=== PATIENT | female | born 1980 | race American Indian/Alaskan Native ===

== ENCOUNTER 2017-09-22 16:48 | Emergency (ER) | payer MEDICAID ==
[2017-09-22 17:52] LABS: Basophils # (Auto) 0.1 K/mm3 (0.0-0.1); Basophils % (Auto) 0.9 % (0.0-1.8); Eosinophils # (Auto) 0.2 K/mm3 (0.0-0.4); Eosinophils % (Auto) 2.3 % (0.0-4.3); Hematocrit 38.9 % (30.3-42.9); Hemoglobin 12.9 gm/dl (10.1-14.3); Lymphocytes % (Auto) 30.6 % (13.4-35.0); Mean Corpuscular HGB Conc 33 % (30-34); Mean Corpuscular Hemoglobin 27 pg (28-32); Mean Corpuscular Volume 81 fl (79-97); Monocytes # (Auto) 0.5 K/mm3 (0.0-0.8); Monocytes % (Auto) 7.5 % (0.0-7.3); Platelet Count 382 K/mm3 (140-440); Red Blood Count 4.78 M/mm3 (3.65-5.03); Red Cell Distribution Width 16.7 % (13.2-15.2)
[2017-09-22 17:58] LABS: Bilirubin,Urine NEG (Negative); Blood,Urine NEG (Negative); Color,Urine Yellow (Yellow); Protein,Urine <15 mg/dL mg/dL (Negative)
[2017-09-22 18:00] LABS: HCG Qualitative,Urine Negative (Negative)
[2017-09-22 18:11] LABS: Alanine Aminotransferase 22 units/L (7-56); Albumin 4.3 g/dL (3.9-5); BUN/Creatinine Ratio 8; Blood Urea Nitrogen 6 mg/dL (7-17); Calcium 9.3 mg/dL (8.4-10.2); Hemolysis Index 0
[2017-09-22] MEDS ORDERED: ZOFRAN IV ONE (23:12)
[2017-09-22] MEDS ORDERED: STADOL IV ONE (23:12)
[2017-09-22] MEDS ORDERED: NACL ONE (23:43)
--- NOTE | 2017-09-23 01:32 | Cat Scan Report ---
FINAL REPORT PROCEDURE: CT ABDOMEN PELVIS W CON TECHNIQUE: Computerized axial tomography of the abdomen and pelvis was performed after the IV injection of iodinated nonionic contrast. HISTORY: PAIN COMPARISON: No prior studies are available for comparison. FINDINGS: Visualized lower thorax: No significant abnormality. Liver: Normal size and attenuation. Spleen: Normal size and attenuation. Gallbladder and biliary system: Normal. Pancreas: Normal. Adrenals: Normal. Kidneys: Normal. GI tract: There is focal acute diverticulitis of the sigmoid colon. There is no perforation, obstruction or abscess. There has been gastric surgery. The small bowel and appendix are unremarkable per. Lymph nodes and mesentery: Normal. Vasculature: Normal. Bladder: Normal. Reproductive organs: Uterus and ovaries are intact. There is a small amount of free pelvic fluid.. Peritoneum: There is no free air, abscess or adenopathy.. Musculoskeletal structures: No significant abnormality. Other: None. IMPRESSION: Focal acute diverticulitis of the sigmoid colon. There is no obstruction, perforation or abscess.
[2017-09-23] MEDS ORDERED: STADOL IV ONE (01:40)
--- NOTE | 2017-09-23 02:09 | Emergency Department Report ---
ED Abdominal Pain HPI - General Chief Complaint: Abdominal Pain Stated Complaint: LOWER ABD PAIN Time Seen by Provider: 09/22/17 22:51 Source: patient Mode of arrival: Ambulatory Limitations: No Limitations - History of Present Illness Initial Comments: Patient complains of abdominal pain for the last 3 days. Patient is status post gastric sleeve, which was done in July Complaint: abdominal pain -: Gradual Location: LLQ Radiation: other (none) Migration to: other (none) Severity: moderate Severity scale (0 -10): 6 Quality: sharp Consistency: constant Improves With: nothing Worsens With: nothing Associated Symptoms: nausea - Related Data Previous Rx's Medication Instructions Recorded Last Taken Type Ciprofloxacin HCl [Cipro] 500 mg PO BID #20 tablet 09/23/17 Unknown Rx HYDROcodone/ACETAMINOPHEN [[place] 1 each PO Q6HR PRN #20 tablet 09/23/17 Unknown Rx 7.5-325 Tablet] Ondansetron [Zofran Odt] 4 mg PO Q6HR PRN #20 tab.rapdis 09/23/17 Unknown Rx metroNIDAZOLE [Flagyl CAP] 500 mg PO BID #20 capsule 09/23/17 Unknown Rx Allergies Allergy/AdvReac Type Severity Reaction Status Date / Time No Known Allergies Allergy Unverified 09/22/17 17:21 ED Review of Systems ROS: Stated complaint: LOWER ABD PAIN Other details as noted in HPI Constitutional: denies: chills, fever Eyes: denies: eye pain, eye discharge, vision change ENT: denies: ear pain, throat pain Respiratory: denies: cough, shortness of breath, wheezing Cardiovascular: denies: chest pain, palpitations Endocrine: no symptoms reported Gastrointestinal: abdominal pain. denies: nausea, diarrhea Genitourinary: denies: urgency, dysuria, discharge Musculoskeletal: denies: back pain, joint swelling, arthralgia Skin: denies: rash, lesions Neurological: denies: headache, weakness, paresthesias Psychiatric: denies: anxiety, depression Hematological/Lymphatic: denies: easy bleeding, easy bruising ED Past Medical Hx - Past Medical History Previous Medical History?: No - Surgical History Additional Surgical History: GASTRIC SLEEVE 07/12/2017 - Social History Smoking Status: Never Smoker Substance Use Type: None - Medications Home Medications: Home Medications Medication Instructions Recorded Confirmed Last Taken Type Ciprofloxacin HCl [Cipro] 500 mg PO BID #20 tablet 09/23/17 Unknown Rx HYDROcodone/ACETAMINOPHEN [[place] 1 each PO Q6HR PRN #20 tablet 09/23/17 Unknown Rx 7.5-325 Tablet] Ondansetron [Zofran Odt] 4 mg PO Q6HR PRN #20 tab.rapdis 09/23/17 Unknown Rx metroNIDAZOLE [Flagyl CAP] 500 mg PO BID #20 capsule 09/23/17 Unknown Rx ED Physical Exam - General Limitations: No Limitations General appearance: alert, in no apparent distress - Head Head exam: Present: atraumatic, normocephalic - Eye Eye exam: Present: normal appearance - ENT ENT exam: Present: mucous membranes moist - Neck Neck exam: Present: normal inspection - Respiratory Respiratory exam: Present: normal lung sounds bilaterally. Absent: respiratory distress - Cardiovascular Cardiovascular Exam: Present: regular rate, normal rhythm. Absent: systolic murmur, diastolic murmur, rubs, gallop - GI/Abdominal GI/Abdominal exam: Present: soft, tenderness (left lower quadrant), normal bowel sounds - Rectal Rectal exam: Present: deferred - External exam: Present: other (deferred) - Extremities Exam Extremities exam: Present: normal inspection - Back Exam Back exam: Present: normal inspection - Neurological Exam Neurological exam: Present: alert, oriented X3 - Psychiatric Psychiatric exam: Present: normal affect, normal mood - Skin Skin exam: Present: warm, dry, intact, normal color. Absent: rash ED Course Vital Signs 09/22/17 09/23/17 09/23/17 17:21 00:24 00:30 Temperature 98.1 F Pulse Rate 77 90 91 H Respiratory 16 18 11 L Rate Blood Pressure 131/85 111/71 O2 Sat by Pulse 98 97 96 Oximetry 09/23/17 09/23/17 09/23/17 00:40 00:50 01:34 Temperature 98.9 F Pulse Rate 108 H 108 H Respiratory 17 17 16 Rate Blood Pressure 111/71 111/71 O2 Sat by Pulse 92 94 97 Oximetry ED Medical Decision Making - Lab Data Result diagrams: 09/22/17 17:34 09/22/17 17:34 - Medical Decision Making Discussed results with the patient Patient was concerned because she thought she was not able to take pills after having her surgery Contacted Dr. Bailey and her nurse practitioner returned the call Spoke toke to Ravi HERNANDEZ and the patient is able to take pills and if needed she may crush them up Discussed this with the patient and her guest Critical care attestation.: If time is entered above; I have spent that time in minutes in the direct care of this critically ill patient, excluding procedure time. ED Disposition Clinical Impression: Diverticulitis Disposition: TO HOME OR SELFCARE Is pt being admited?: No Does the pt Need Aspirin: No Condition: Stable Instructions: Abdominal Pain (ED), Diverticulitis (ED) Prescriptions: Ciprofloxacin HCl [Cipro] 500 mg PO BID #20 tablet HYDROcodone/ACETAMINOPHEN [[place] 7.5-325 Tablet] 1 each PO Q6HR PRN #20 tablet PRN Reason: Pain metroNIDAZOLE [Flagyl CAP] 500 mg PO BID #20 capsule Ondansetron [Zofran Odt] 4 mg PO Q6HR PRN #20 tab.rapdis PRN Reason: Nausea Referrals: IDALIA HAINES MD [Primary Care Provider] - 3-5 Days Time of Disposition: 02:09
[2017-09-23 02:23] VITALS: BP 98/65
== END 2017-09-23 02:26 | disposition home or self-care (01) ==
LOC: ED 16:48
DX: K57.92 Diverticulitis of intestine, part unspecified, without perforation or abscess without bleeding (principal)
CPT/HCPCS: 36415; 74177; 80053; 81001; 81025; 85025; 96374; 96375; 99284; J0595; J2405; Q9967